=== PATIENT | male | born 1965 | race Caucasian/White ===

== ENCOUNTER 2021-06-23 13:16 | Emergency (ER) | payer SELFPAY ==
[2021-06-23 13:55] VITALS: BP 132/87; PULSE 73; RESP 19; TEMP 36.9; O2SAT 96; BMI 39.4
--- NOTE | 2021-06-23 13:57 | HMH.EDUTC ---
[facility] Disposition Clinical Impression: COPD exacerbation Sinusitis Qualifiers: Sinusitis location: unspecified location Chronicity: acute Recurrence: non-recurrent Qualified Code(s): J01.90 - Acute sinusitis, unspecified Disposition: Home, Self-Care Condition on Discharge: Good Instructions: DI for Chronic Obstructive Pulmonary Disease, DI for Sinusitis Additional Instructions: Drink plenty of fluids. Take tylenol or ibuprofen for pain or fever. Take the medications as directed. Follow up with your regular doctor. GO TO THE ER FOR ANY WORSENING SYMPTOMS Don't start the oral steroids until tomorrow, since you had the shot here today. The cough medication (promethazine dm) will make you drowsy, so don't drive or operate heavy machinery after taking it. Prescriptions: Promethazine/Dextromethorphan [Promethazine-Dm Syrup] 5 ml PO Q6HP PRN #240 ml PRN Reason: Cough [facility] Benzonatate [Benzonatate 100mg cap] 100 mg PO TIDP PRN #30 cap PRN Reason: Cough [facility] Status[facility] predniSONE [Deltasone 10mg tablet] 10 mg PO DAILY 9 Days #21 tab Transmission Status: Received by [facility] guaiFENesin [Mucinex 600mg tablet] 1 - 2 tab PO BIDP PRN #30 tab PRN Reason: Congestion [facility] Azithromycin [Z-Naun 250mg Tab*] 250 mg PO UD DOSE PK #6 tab Transmission Status[facility] Referrals: Kevin Hawthorne [Primary Care Provider] - Time of Disposition: 14:47 Medical Decision Making - Medical Records Medical records reviewed: No: I reviewed the patient's medical records. - Duane Inquiry Pt receiving controlled substance: No Vital Signs: 06/23/21 13:55 06/23/21 15:05 Temperature 98.5 F 98.5 F Temperature Source Oral Pulse Rate 73 Pulse Rate [Left] 73 Respiratory Rate 19 19 Blood Pressure 132/87 Blood Pressure [Right Arm] 132/87 Blood Pressure Mean [Right Arm] 102 02 Sat by Pulse Oximetry 96 Orders (Tests/Meds): ED MEDICATIONS Discontinued Medications Generic Name Dose Route Start Last Admin Trade Name Freq PRN Reason Stop Dose Admin Dexamethasone Sodium Phosphate 8 mg 06/23/21 14:38 06/23/21 14:56 Dexamethasone 4mg/Ml 1ml Vial IM 06/23/21 14:39 8 mg ONCE ONE Administration [facility] HPI - General Stated complaint: chest congestion, cough Time Seen by Provider: 06/23/21 14:39 - History of Present Illness Provider Complaint: He states that for the past 4 days he has had sinus congestion and chest congestion. He has a history of copd. - Related Data Home Medications Medication Instructions Recorded Confirmed atenolol 25 mg tablet 25 mg PO DAILY 03/06/19 03/06/19 cetirizine 10 mg capsule 10 mg PO DAILY 03/06/19 03/06/19 hydrochlorothiazide 25 mg tablet 25 mg PO DAILY tab 03/06/19 03/06/19 xknstiqm-xdskeote-ppoaq acid 400 tab PO 03/06/19 03/06/19 mcg-vit K 20 mcg-lycop 300 mcg tablet omeprazole 20 mg tablet,delayed 20 mg PO DAILY 03/06/19 03/06/19 release potassium chloride 10 mEq 10 meq PO DAILY 03/06/19 03/06/19 tablet,extended release Previous Rx's Medication Instructions Recorded albuterol sulfate 1.25 mg/3 mL 1.25 mg INHALATION Q4-6H PRN #75 ml 03/06/19 solution for nebulization benzonatate 200 mg capsule 200 mg PO TID PRN #30 cap 03/06/19 prednisone 20 mg tablet 40 mg PO DAILY #10 tab 03/06/19 Azithromycin [Z-Naun 250mg Tab*] 250 mg PO UD DOSE PK #6 tab 06/23/21 Benzonatate [Benzonatate 100mg 100 mg PO TIDP PRN #30 cap 06/23/21 cap] Promethazine/Dextromethorphan 5 ml PO Q6HP PRN #240 ml 06/23/21 [Promethazine-Dm Syrup] guaiFENesin [Mucinex 600mg tablet] 1 - 2 tab PO BIDP PRN #30 tab 06/23/21 predniSONE [Deltasone 10mg tablet] 10 mg PO DAILY 9 Days #21 tab 06/23/21 Allergies Allergy/AdvReac Type Severity Reaction Status Date / Time ampicillin [AMPIC
[2021-06-23 15:05] VITALS: BP 132/87; PULSE 73; RESP 19; TEMP 36.9
== END 2021-06-23 15:06 | disposition home or self-care (01) ==
PROVIDERS: Emergency Provider Nurse Practitioner Family; PCP Family Medicine
DX: J44.1 Chronic obstructive pulmonary disease with (acute) exacerbation (principal); J01.90 Acute sinusitis, unspecified; K21.9 Gastro-esophageal reflux disease without esophagitis; I10 Essential (primary) hypertension; Z87.891 Personal history of nicotine dependence; Z79.899 Other long term (current) drug therapy
CPT/HCPCS: 96372; 99213; G0463